=== PATIENT | male | born 1970 | race Two or more races ===

== ENCOUNTER 2020-07-17 16:14 | Emergency (ER) | payer SELFPAY ==
[~2020-07-17] VITALS: Ht 172.7 cm; Wt 86.2 kg
[2020-07-17] MEDS ORDERED: ETOMIDATE (2MG/ML) 20ML VIAL IV ONE ×2 (16:30→17:30)
[2020-07-17 17:29] VITALS: BP 158/81
== END 2020-07-17 17:46 | disposition home or self-care (01) ==
LOC: ER 16:14
DX: S43.004A Unspecified dislocation of right shoulder joint, initial encounter (principal); F17.210 Nicotine dependence, cigarettes, uncomplicated; W19.XXXA Unspecified fall, initial encounter; Y93.89 Activity, other specified; Y92.89 Other specified places as the place of occurrence of the external cause; Y99.8 Other external cause status
CPT/HCPCS: 23650; 73030; 99152